=== PATIENT | female | born 1945 | race Caucasian/White ===

== ENCOUNTER → 2017-12-04 | Outpatient (CLI) | payer MEDICARE | END | disposition home or self-care (01) | LOC: CFH 14:11 | PROVIDERS: ATTEND Surgery | DX: Z12.31 Encounter for screening mammogram for malignant neoplasm of breast (principal) | CPT/HCPCS: 77067 ==

== ENCOUNTER → 2018-01-01 | Outpatient (CLI) | payer MEDICARE ==
[~2018-01-01] MED LIST: GADOBUTROL 7.5 MMOL/7.5 ML VIAL ONE
== END | disposition home or self-care (01) ==
LOC: CFH 14:43
PROVIDERS: ATTEND Surgery
DX: D24.9 Benign neoplasm of unspecified breast (principal)
CPT/HCPCS: 82565; A9585; C8908

== ENCOUNTER 2018-06-20 11:44 | Outpatient (CLI) | payer MEDICARE ==
[2018-06-20] MEDS ORDERED: BENZ2TAB6 PO (13:45)
[2018-06-20] MEDS ORDERED: CITA20TA9 PO (13:45)
[2018-06-20] MEDS ORDERED: MELO7.5T31 PO (13:45)
== END 2018-06-20 23:59 | disposition home or self-care (01) ==
LOC: STAR 11:44
PROVIDERS: ATTEND Orthopaedic Surgery
DX: M17.11 Unilateral primary osteoarthritis, right knee (principal)
CPT/HCPCS: 87081; 87147

== ENCOUNTER 2018-06-28 05:49 | Observation (INO) | payer MEDICARE ==
[~2018-06-28] VITALS: Ht 162.6 cm; Wt 51.7 kg
[~2018-06-28 05:49] MED LIST changes: +BENZ2TAB6 PO; +CITA20TA9 PO; -GADOBUTROL 7.5 MMOL/7.5 ML VIAL ONE; +MELO7.5T31 PO
[2018-06-28] MEDS ORDERED: FENTANYL PF 250 MCG/5ML ONE (06:22)
[2018-06-28] MEDS ORDERED: ROPIvacaine/PF 0.2%, 20 ML ONE (06:23)
[2018-06-28] MEDS ORDERED: ONDANSETRON 2MG/ML, 2ML IV PRN ×2 (06:30→07:30)
[2018-06-28] MEDS ORDERED: SCOPOLAMINE PATCH, 1.5MG PATCH.TD72 TD ONE (06:30)
[2018-06-28] MEDS ORDERED: ZOLPIDEM 5MG TABLET PO PRN (06:30)
[2018-06-28] MEDS ORDERED: BISACODYL 10 MG SUPP PR PRN (06:30)
[2018-06-28] MEDS ORDERED: HYDROmorphone 1 MG/ML, 1ML INJ IV PRN (06:30)
[2018-06-28] MEDS ORDERED: MAGNESIUM HYDROXIDE 8%, 30ML UDC PO PRN (06:30)
[2018-06-28] MEDS ORDERED: HYDROcodone/APAP 5/325 TABLET PO PRN (06:30)
[2018-06-28] MEDS ORDERED: DIPHENHYDRAMINE 50 MG CAPSULE PO PRN (06:30)
[2018-06-28] MEDS ORDERED: OXYcodone IR 5MG TABLET PO PRN (06:30)
[2018-06-28] MEDS ORDERED: ACETAMINOPHEN 650 MG/20.3 ML UDC PO PRN (06:30)
[2018-06-28] MEDS ORDERED: SENNA/DOCUSATE TABLET PO PRN (06:30)
[2018-06-28 06:41] VITALS: BP 127/89
[2018-06-28] MEDS ORDERED: ACETAMINOPHEN 500 MG TABLET PO ONE (07:00)
[2018-06-28] MEDS ORDERED: GABAPENTIN 300 MG CAPSULE PO ONE (07:00)
[2018-06-28] MEDS: LACTATED RINGERS 1,000 ML IV SCH (07:00)
[2018-06-28] MEDS ORDERED: PROMETHAZINE 25 MG/ML, 1ML IV PRN (07:30)
[2018-06-28] MEDS ORDERED: MEPERIDINE/PF 25MG/0.5ML IVPush PRN (07:30)
[2018-06-28] MEDS ORDERED: OXYcodone 5 MG/5 ML ORAL.SOL UDC PO PRN (07:30)
[2018-06-28] MEDS ORDERED: FENTANYL PF 100 MCG/2ML IV PRN (07:30)
[2018-06-28] MEDS ORDERED: PROMETHAZINE 25 MG/ML, 1ML IM PRN ×2 (07:30)
[2018-06-28] MEDS ORDERED: HYDROmorphone 2 MG/ML, 1ML IVPush PRN (07:30)
[2018-06-28] MEDS ORDERED: PROMETHAZINE 12.5 MG SUPP PR PRN (07:30)
[2018-06-28] MEDS ORDERED: ONDANSETRON ODT 8 MG PO PRN (07:30)
[2018-06-28] MEDS ORDERED: LABETALOL 5MG/ML, 20ML IV PRN (07:30)
[2018-06-28] MEDS ORDERED: hydrALAzine 20 MG/ML, 1ML IV PRN (07:30)
[2018-06-28] MEDS ORDERED: MORPHINE SULFATE 4 MG/ML, 1ML IVPush PRN (07:30)
[2018-06-28] MEDS ORDERED: PROMETHAZINE 25 MG SUPP PR PRN (07:30)
[2018-06-28] MEDS ORDERED: VANCOMYCIN 1,000 MG ONE (07:34)
[2018-06-28] MEDS ORDERED: ROPIvacaine/PF 0.5%, 30 ML ONE (07:34)
[2018-06-28] MEDS ORDERED: TRANEXAMIC ACID 100 MG/ML, 10ML ONE ×2 (07:34)
[2018-06-28] MEDS ORDERED: SODIUM CHLORIDE 0.9% 50 ML ONE (07:34)
[2018-06-28] MEDS ORDERED: KETOROLAC 60 MG/2 ML ONE (07:34)
[2018-06-28] MEDS ORDERED: EPINEPHRINE 1 MG/ML, 1ML ONE (07:35)
[2018-06-28] MEDS ORDERED: PHENYLEPHRINE 10 MG/ML ONE (07:56)
[2018-06-28] MEDS ORDERED: PROPOFOL 10 MG/ML, 20ML ONE (08:27)
[2018-06-28] MEDS ORDERED: NEOSTIGMINE 1 MG/ML, 10ML ONE (08:27)
[2018-06-28] MEDS ORDERED: CEFAZOLIN 1,000 MG ONE (08:27)
[2018-06-28] MEDS ORDERED: DEXAMETHASONE 4 MG/ML, 1ML ONE (08:27)
[2018-06-28] MEDS ORDERED: GLYCOPYRROLATE 0.2MG/1ML, 5ML ONE (08:27)
[2018-06-28] MEDS ORDERED: ROCURONIUM 10MG/ML,5ML ONE (08:27)
[2018-06-28] MEDS ORDERED: ONDANSETRON 2MG/ML, 2ML ONE (08:27)
[2018-06-28] MEDS ORDERED: FENTANYL PF 100 MCG/2ML ONE (09:53)
[2018-06-28] MEDS ORDERED: OXYcodone 5 MG/5 ML ORAL.SOL UDC ONE (09:53)
[2018-06-28 10:58] VITALS: BP 109/56
[2018-06-28] MEDS: BENZTROPINE 1 MG TABLET PO SCH (11:30)
[2018-06-28] MEDS: DOCUSATE 100 MG CAPSULE PO SCH ×2 (11:30→21:00)
[2018-06-28] MEDS: NS + 20MEQ KCL 1,000 ML IV SCH (11:30)
[2018-06-28] MEDS: CITALOPRAM 20 MG TABLET PO SCH (11:31)
[2018-06-28 13:03] VITALS: BP 104/56
[2018-06-28] MEDS: CEFAZOLIN PMX 2GM/50ML 50 ML IVPB SCH (16:22)
[2018-06-28] MEDS: ASPIRIN 81 MG TABLET EC PO SCH (17:37)
[2018-06-28] MEDS ORDERED: SODIUM CHLORIDE 0.9%, 500ML IVBOLUS ONE (18:30)
[2018-06-28 20:12] VITALS: BP_SYST 118; BP_SYST 160; BP_DIAS 60; BP_DIAS 74
[2018-06-29 00:25] VITALS: BP 139/82
[2018-06-29] MEDS: NS + 20MEQ KCL 1,000 ML IV SCH (00:30)
[2018-06-29] MEDS: CEFAZOLIN PMX 2GM/50ML 50 ML IVPB SCH (02:00)
[2018-06-29 05:30] VITALS: BP 112/65
[2018-06-29] MEDS ORDERED: DEXAMETHASONE 4 MG/ML, 1ML IVPush SCH (06:00)
[2018-06-29] MEDS: ASPIRIN 81 MG TABLET EC PO SCH (06:36)
[2018-06-29] MEDS: LACTATED RINGERS 1,000 ML IV SCH (07:00)
[2018-06-29 07:30] VITALS: BP 115/52
[2018-06-29] MEDS: CITALOPRAM 20 MG TABLET PO SCH (08:30)
[2018-06-29] MEDS: BENZTROPINE 1 MG TABLET PO SCH (08:30)
[2018-06-29] MEDS: DOCUSATE 100 MG CAPSULE PO SCH (08:30)
[2018-06-29] MEDS ORDERED: OXYC5CAP2 PO (09:25)
[2018-06-29] MEDS ORDERED: TRAM50TA2 PO (09:26)
[2018-06-29] MEDS ORDERED: MELO7.5T31 PO (09:27)
[2018-06-29 10:16] VITALS: BP 99/55
== END 2018-06-29 11:10 | disposition home or self-care (01) ==
LOC: OUT 05:49 → 4NOR 10:44 → OUT 22:57 → DCLOUNGE 06-29 10:50
PROVIDERS: ADMIT Orthopaedic Surgery; ATTEND Orthopaedic Surgery
DX: M17.11 Unilateral primary osteoarthritis, right knee (principal); Z96.651 Presence of right artificial knee joint
CPT/HCPCS: 27447; 36415; 85014; 85018; 96365; 96366; 96375; 97162; 97166; C1713; C1776; G0378; J0171; J0690; J1100; J1885; J2370; J2405; J2704; J2710; J2795; J3010; J3370; J3480; J3490; J7040; J7120